=== PATIENT | female | born 1955 | race Caucasian/White ===

== ENCOUNTER → 2021-12-29 | Outpatient (CLI) | payer MEDICARE, OTHER | END | disposition home or self-care (01) | LOC: LAB 11:02 → LAB SHORT 11:02 | DX: Z09 Encounter for follow-up examination after completed treatment for conditions other than malignant neoplasm (principal); Z86.19 Personal history of other infectious and parasitic diseases | CPT/HCPCS: 87338 ==

== ENCOUNTER 2025-02-02 12:33 | Day surgery (SDC) | payer MEDICARE, BC ==
[~2025-02-02] VITALS: Ht 162.6 cm; Wt 97.1 kg
[~2025-02-02 12:33] MED LIST: Balanced Salt Epinephrine Irrigation Solution 500 mL IR SCH; Moxifloxacin HCL 0.5 MG/0.1 ML 0.4MLSYR LEFTEYE SCH; Ondansetron 4 MG SoluTab MM PRN; PHENYLEPHRINE\\TROPICAMIDE\\TETRACAINE OPHTHALMIC DILATING SOLN LEFTEYE PRN; Povidone-Iodine 450 DROP/30 ML Solution LEFTEYE SCH; Povidone-Iodine 450 DROP/30 ML Solution ONE; Tetracaine HCl/Pf 0.5% Opth Soln 4 ml ONE
[2025-02-02] MEDS ORDERED: OMEPRAZOLE CAP 20M (12:47)
--- NOTE | 2025-02-02 12:52 | NUR ---
02/02/25 1252 Yessenia Longo CALL LIGHT WITHIN REACH. FAMILY AT BEDSIDE. PT ON CONTINOUS PULSE OXIMETER
--- NOTE | 2025-02-02 13:26 | NUR ---
02/02/25 1326 Pam Sorto 1320 BP 130/75, HR 77, O2 AT 98%, RESP 16
[2025-02-02 13:36] VITALS: BP 128/74
--- NOTE | 2025-02-02 13:55 | NUR ---
02/02/25 1355 Judi Banks PT DENIED ANY PAIN, NO NAUSEA. PT ABLE TO TOLERATE FLUIDS WELL. PT STATED THAT SHE FELT DIZZY. PT WAS ASSISTED TO HER PRIVATE VEHICLE VIA WC. PT RECEIVED 15MG OF VALIUM PRE-OP. PT EDUCATION PROVIDED RE IMPORTANCE TO REST TODAY AND TO HAVE SOMEONE STAY AT HOME TO ASSIST HER WITH TRANSFERS FOR SAFETY TONIGHT. ALL QUESTIONS ANSWERED, CONCERNS ADDRESSED.
== END 2025-02-02 13:49 | disposition home or self-care (01) ==
LOC: ORSCSDS 12:33
PROVIDERS: Student in an Organized Health Care Education/Training Program
PROC: 08RK3JZ Replacement of Left Lens with Synthetic Substitute, Percutaneous Approach (ICD-10-PCS; principal; 2025-02-02 14:00)
DX: H25.813 Combined forms of age-related cataract, bilateral (principal); H04.123 Dry eye syndrome of bilateral lacrimal glands; Z79.899 Other long term (current) drug therapy
CPT/HCPCS: A9270; V2632

== ENCOUNTER 2025-02-18 12:04 | Day surgery (SDC) | payer MEDICARE, BC ==
[~2025-02-18] VITALS: Ht 162.6 cm; Wt 76.1 kg
[~2025-02-18 12:04] MED LIST changes: -Balanced Salt Epinephrine Irrigation Solution 500 mL IR SCH; -Moxifloxacin HCL 0.5 MG/0.1 ML 0.4MLSYR LEFTEYE SCH; +OMEPRAZOLE CAP 20M; -Ondansetron 4 MG SoluTab MM PRN; -PHENYLEPHRINE\\TROPICAMIDE\\TETRACAINE OPHTHALMIC DILATING SOLN LEFTEYE PRN; -Povidone-Iodine 450 DROP/30 ML Solution LEFTEYE SCH; -Povidone-Iodine 450 DROP/30 ML Solution ONE; -Tetracaine HCl/Pf 0.5% Opth Soln 4 ml ONE
[2025-02-18 13:04] VITALS: BP 157/87
[2025-02-18] MEDS ORDERED: Ondansetron HCl 2 MG / ML 2ML Vial IV PRN (13:40)
[2025-02-18] MEDS ORDERED: Albuterol 2.5 MG/3 ML VIAL INH PRN (13:40)
[2025-02-18] MEDS ORDERED: FentaNYL Citrate 50 MCG/ML 2 ML Injection IV PRN ×2 (13:40)
[2025-02-18] MEDS ORDERED: Midazolam HCl 1MG / ML 2ML Vial IV PRN (13:45)
[2025-02-18] MEDS ORDERED: CefTRIAXone Sodium 2,000 MG in NS 100 ML IV ONE (14:30)
[2025-02-18] MEDS ORDERED: Bupivacaine 0.25% Epi 1:200000 30 ML Vial ONE (14:35)
[2025-02-18] MEDS ORDERED: CefTRIAXone 2000 MG Vial ONE (14:38)
[2025-02-18 15:44] VITALS: BP 98/67
[2025-02-18 15:45] VITALS: BP 99/63
[2025-02-18 15:47] VITALS: BP 103/65
[2025-02-18 15:50] VITALS: BP 100/64
[2025-02-18 16:08] VITALS: BP 126/75
--- NOTE | 2025-02-18 16:09 | NUR ---
Patient up to Ambulate independently. Gait steady. Discharge instructions reviewed with patient. Patient verbalizes understanding. Copy given to patient to take home. Discharged via wheelchair to private car for ride home.
== END 2025-02-18 16:24 | disposition home or self-care (01) ==
LOC: ORSCMMR 12:04 → ORD 12:15 → ORSCMMR 16:24
PROVIDERS: Orthopaedic Surgery
PROC: 0X6P0Z3 Detachment at Left Index Finger, Low, Open Approach (ICD-10-PCS; principal; 2025-02-18 14:30)
DX: S62.631B Displaced fracture of distal phalanx of left index finger, initial encounter for open fracture (principal); Y93.H2 Activity, gardening and landscaping; K21.9 Gastro-esophageal reflux disease without esophagitis; Z79.899 Other long term (current) drug therapy
CPT/HCPCS: 90471; 90714; A9270; J0696; J2250; J2704; J7120